=== PATIENT | female | born 1955 | race Caucasian/White ===

== ENCOUNTER → 2017-12-19 05:15 | Outpatient (CLI) | payer OTHER | END | disposition home or self-care (01) | LOC: D.MAMMO 12-08 10:30 | DX: Z12.31 Encounter for screening mammogram for malignant neoplasm of breast (principal) ==

== ENCOUNTER 2018-01-17 08:00 | Outpatient (CLI) | payer OTHER | END 2018-01-17 09:00 | disposition home or self-care (01) | LOC: D.MAMMO 08:00 | DX: R92.2 Inconclusive mammogram (principal) ==

== ENCOUNTER → 2018-01-22 13:52 | Outpatient (CLI) | payer MEDICARE, OTHER | END | disposition home or self-care (01) | LOC: D.US 01-19 14:00 | DX: R92.8 Other abnormal and inconclusive findings on diagnostic imaging of breast (principal) ==

== ENCOUNTER 2019-05-21 07:15 | Day surgery (SDC) | payer MEDICARE, OTHER ==
[2019-05-20 14:42] LABS: CALC OSMOLALITY 281 mosm/kg (275-300); CALCIUM 8.9 mg/dL (8.5-10.1); CARBON DIOXIDE 30.8 mmol/L (21.0-32.0); CHLORIDE - SERUM 106 mmol/L (98-107); CREATININE - SERUM 0.7 mg/dL (0.6-1.3); GLUCOSE 111 mg/dL (74-106); POTASSIUM - SERUM 3.8 mmol/L (3.5-5.1); SODIUM 141 mmol/L (136-145); UREA NITROGEN 13 mg/dL (7-18); eGFR NON AFRICAN AMERICAN 89 mL/min (90-120)
[2019-05-20 15:00] LABS: BASOPHILS 0.5 % (0-2); EOSINOPHILS 1.4 % (0-7); HEMATOCRIT 39.5 % (36.0-48.0); HEMOGLOBIN 12.8 g/dL (12-16); IMMATURE GRANULOCYTES 0.2 % (0-5); LYMPHOCYTES 30.9 % (15-50); MCH 30.8 pg (26.0-34.0); MCHC 32.4 g/dL (31.0-37.0); MCV 95.2 fL (80.0-100.0); MONOCYTES 8.9 % (2-11); NEUTROPHILS 58.1 % (40-80); PLATELET COUNT 234 10x3/uL (130-400); RBC 4.15 10x6/uL (4.00-5.40); RDW 12.8 % (11.5-14.5); WBC 5.6 10x3/uL (4.8-10.8)
[~2019-05-21] VITALS: Ht 165.1 cm; Wt 65.8 kg
[~2019-05-21 07:15] MED LIST: ASPIRIN EC81 M1 PO; BISOPROLOL-HCT1 EAC3 PO; CALCIUM 250+D T1 TAB PO; COZAAR25 MG PO; DEXILANT60 MG PO; ESTRACE1 MG PO; FISH OIL 1,0001 CA1 PO; FLAX SEED OIL PO; HCTZ25 MG PO; LEVOTHYROXINE75 MCG PO; MULTI-DAY VITAM1 TAB PO; VITAMIN B COMPLEX PO
[2019-05-21] MEDS ORDERED: NIASPAN500 MG PO (07:43)
[2019-05-21] MEDS ORDERED: PROTONIX40 MG PO (07:44)
[2019-05-21 07:47] VITALS: BP 134/72; Ht 165.1 cm; Wt 65.8 kg
[2019-05-21] MEDS ORDERED: HYDROCODON-ACE1 EA10 PO (10:21)
--- NOTE | 2019-05-21 14:20 | NUR ---
PT HAS NOT VOIDED. CALLED DR. MATRINEZ TO INFORM HIM. HE TOLD ME TO BLADDER SCAN PT TO MAKE SURE HER BLADDER WAS NOT FILLED WITH 700-800 ML. IF >500 ML IN BLADDER, IN/OUT CATH WILL HAVE TO BE DONE. BLADDER SCANNED PT AND IT SHOWED 470 ML. PT STATES THAT HER BLADDER DOESN'T FEEL TOO FULL. I INFORMED PT THAT SHE SHOULD BE ABLE TO VOID BY TONIGHT AND THAT IF SHE DOESN'T OR IF SHE'S IN TOO MUCH PAIN FROM NOT BEING ABLE TO VOID THEN SHE SHOULD GO TO THE ER.
--- NOTE | 2019-05-21 14:23 | NUR ---
DC INSTRUCTIONS GIVEN TO PT/FAMILY. STATES UNDERSTANDING. DC'D IV CATH FULLY INTACT.
--- NOTE | 2019-05-21 14:27 | NUR ---
PT LEFT UNIT VIA WC AT [id number]
--- NOTE | 2019-06-04 14:22 | OP ---
PATIENT NAME: RADU ADAN MEDICAL RECORD: [id number] :53 LOCATION:D.OPS ADMISSION DATE: SURGEON: SEVERIANO MARTINEZ MD DATE OF OPERATION: 05/21/2019 PREOPERATIVE DIAGNOSES: 1. Gallstones. 2. Hypertension. POSTOPERATIVE DIAGNOSES: 1. Gallstones. 2. Hypertension. PROCEDURE: Laparoscopic cholecystectomy. SURGEON: Severiano Martinez MD REPORT OF PROCEDURE: The patient's abdomen was prepped and draped in sterile fashion. A cutdown was made on the superior aspect of the umbilicus, 0 Vicryls were placed in the fascia bilaterally and the fascia was incised with 15-blade. I then bluntly entered the peritoneal cavity and placed a 12-mm Shelton port. Under direct visualization, a 5-mm trocar was placed in the epigastrium and 2 more 5-mm trocars were placed in the right subcostal region. The gallbladder was grasped and elevated. The cystic artery and cystic duct were dissected free and these were clipped proximally and distally and ligated in standard fashion. The gallbladder was then taken off the liver bed using electrocautery and placed into the right upper quadrant. Any bleeding from the liver bed was then treated with electrocautery. At this point, the ports and insufflation were then removed and the gallbladder was taken out through the umbilicus. We then closed the fascia of the umbilicus using interrupted 0 Vicryls times 3. The wound was then irrigated out with normal saline and infused with 10 mL of 0.25% Marcaine with epinephrine. The skin incisions were all closed with subcutaneous 5-0 Monocryl and dressed appropriately. COMPLICATIONS: None. CONDITION: Stable. ANESTHESIA: General endotracheal and local. BLOOD LOSS: Minimal. TRANSINT:[id number] Voice Confirmation ID: [id number] DOCUMENT ID: [id number] SEVERIANO MARTINEZ MD at 1422 CC: VIKTORIYA HERNANDEZ [id number] DICTATION DATE: 05/21/19 1026 WHEEL PRESS OPERATOR: 05/21/19 1056 [facility] [place] 05/21/19 [place] [address]
== END 2019-05-21 14:28 | disposition home or self-care (01) ==
LOC: D.PAN 07:15 → D.OPS 07:15
PROVIDERS: ATTEND Surgery
DX: K80.80 Other cholelithiasis without obstruction (principal); I10 Essential (primary) hypertension